=== PATIENT | female | born 1955 | race Caucasian/White ===

== ENCOUNTER 2020-12-18 06:59 | Emergency (ER) | payer MEDICAID ==
[~2020-12-18] VITALS: Ht 149.9 cm; Wt 61.4 kg
[2020-12-18] MEDS ORDERED: ketorolac trometh. 30mg/ml inj. IM ONE (10:10)
[2020-12-18] MEDS ORDERED: acetaminophen 325mg tablet PO ONE (10:10)
[2020-12-18] MEDS ORDERED: CYCL-1 PO (11:58)
--- NOTE | 2020-12-18 12:15 | NUR ---
small soft c collar placed per orderwith velcro extension
[2020-12-18 12:31] VITALS: BP 141/72
== END 2020-12-18 12:25 | disposition home or self-care (01) ==
LOC: ER 06:59
DX: S39.012D Strain of muscle, fascia and tendon of lower back, subsequent encounter (principal); M50.30 Other cervical disc degeneration, unspecified cervical region; G89.29 Other chronic pain; Z98.890 Other specified postprocedural states; Z79.899 Other long term (current) drug therapy; X58.XXXD Exposure to other specified factors, subsequent encounter
CPT/HCPCS: 70450; 72125; 96372; 99285; J1885